=== PATIENT | male | born 1935 | race Caucasian/White ===

== ENCOUNTER 2019-08-05 10:00 | Day surgery (SDC) | payer MEDICARE, OTHER ==
[2019-08-02 08:37] LABS: Basophils # (auto) 0.1 uL; Eosinophils # (auto) 0.3 uL; Eosinophils % (auto) 4.3 % (0.0-7.0); Hematocrit 42.3 % (41.0-53.0); Hemoglobin 14.4 g/dL (13.5-17.5); Lymphocytes # (auto) 2.4 uL; Lymphocytes % (auto) 35.6 % (10.0-50.0); Mean Corpuscular Volume 88.1 fL (80.0-100.0); Monocytes # (auto) 0.5 uL; Monocytes % (auto) 7.3 % (0.0-12.0); Neutrophils # (auto) 3.5 uL; Neutrophils % (auto) 51.8 % (37.0-80.0); Platelet Count (auto) 230 10^3/uL (140-450); White Blood Cell 6.7 10^3/uL (4.4-10.8)
[2019-08-02 15:53] LABS: INR 0.95 (0.9-1.15); Partial Thromboplastin Time 24.5 sec (23.64-32.05)
[~2019-08-05] VITALS: Ht 180.3 cm; Wt 96.2 kg
[~2019-08-05 10:00] MED LIST: ASPI81CH43 GT; ATOR10TA OR; DOXA2TAB PO; ENAL10TA2 OR; GABA100C9 OR; METF-370 OR
[2019-08-05] MEDS: MIDAZOLAM HCL 5 MG/ML-1ML VIAL ONE ×2 (11:34→11:37)
[2019-08-05] MEDS: fentaNYL CITRATE 100 MCG/2 ML VL ONE ×2 (11:34→11:37)
[2019-08-05] MEDS ORDERED: LIDOCAINE VISCOUS 2% 15ML UD ONE (11:36)
[2019-08-05] MEDS ORDERED: SODIUM CHLORIDE LOCK 10 ML ONE (11:36)
[2019-08-05] MEDS ORDERED: diphenhdrAMINE HCL 50 MG/1 ML VL ONE (11:37)
[2019-08-05 12:32] VITALS: BP 112/66
== END 2019-08-05 12:34 | disposition home or self-care (01) ==
LOC: GI 10:00
PROVIDERS: ATTEND Internal Medicine Gastroenterology
DX: K29.50 Unspecified chronic gastritis without bleeding (principal); K29.80 Duodenitis without bleeding; I10 Essential (primary) hypertension; E11.40 Type 2 diabetes mellitus with diabetic neuropathy, unspecified; E78.00 Pure hypercholesterolemia, unspecified; N40.0 Benign prostatic hyperplasia without lower urinary tract symptoms; R25.1 Tremor, unspecified; Z86.010 Personal history of colon polyps; Z79.84 Long term (current) use of oral hypoglycemic drugs; Z79.899 Other long term (current) drug therapy
CPT/HCPCS: 36415; 43239; 43450; 82962; 85025; 85610; 85730; 88305; 88313; 88342; J2250; J3010; J7030

== ENCOUNTER 2020-06-22 11:58 | Day surgery (SDC) | payer MEDICARE, OTHER ==
[2020-06-19 10:12] LABS: Basophils # (auto) 0.1 10 ^3/uL (0-0.2); Eosinophils # (auto) 0.3 10 ^3/uL (0-0.8); Eosinophils % (auto) 4.9 % (0.0-7.0); Hematocrit 33.6 % (41.0-53.0); Hemoglobin 11.4 g/dL (13.5-17.5); Lymphocytes % (auto) 32.8 % (10.0-50.0); Mean Corpuscular Hemoglobin 30.2 pg (28.0-32.0); Mean Corpuscular Hgb Conc. 33.9 g/dL (32.0-36.0); Mean Corpuscular Volume 89.2 fL (80.0-100.0); Monocytes # (auto) 0.5 10 ^3/uL (0-1.3); Monocytes % (auto) 7.8 % (0.0-12.0); Neutrophils # (auto) 3.2 10 ^3/uL (1.6-8.6); Neutrophils % (auto) 53.5 % (37.0-80.0); Nucleated Red Blood Cells % 0.1 %; Platelet Count (auto) 177 10^3/uL (140-450); Red Blood Cells 3.77 10^6/uL (4.5-5.90); Red Cell Distribution Width 13.6 % (11.8-14.3)
[2020-06-19 10:40] LABS: INR 1.03 (0.9-1.15); Partial Thromboplastin Time 23.5 sec (23.0-31.2)
[~2020-06-22] VITALS: Ht 180.3 cm; Wt 104.3 kg
[~2020-06-22 11:58] MED LIST changes: -ASPI81CH43 GT; +ASPI81CH43 PO; -ATOR10TA OR; +ATOR10TA PO; -ENAL10TA2 OR; -GABA100C9 OR; -METF-370 OR; +PANT40TA2 PO; +PIO30T PO; +PRAM0.12 PO; +SODIUM CHLORIDE LOCK 10 ML ONE; +diphenhdrAMINE HCL 50 MG/1 ML VL ONE
[2020-06-22] MEDS: fentaNYL CITRATE 100 MCG/2 ML VL ONE ×2 (13:42→13:44)
[2020-06-22] MEDS: MIDAZOLAM HCL 5 MG/ML-1ML VIAL ONE ×3 (13:42→14:00)
[2020-06-22 14:30] VITALS: BP 134/63
== END 2020-06-22 14:40 | disposition home or self-care (01) ==
LOC: GI 11:58
PROVIDERS: ATTEND Internal Medicine Gastroenterology
DX: Z12.11 Encounter for screening for malignant neoplasm of colon (principal); D12.2 Benign neoplasm of ascending colon; D12.3 Benign neoplasm of transverse colon; K62.1 Rectal polyp; K64.8 Other hemorrhoids; E11.9 Type 2 diabetes mellitus without complications; E66.9 Obesity, unspecified; Z68.32 Body mass index [BMI] 32.0-32.9, adult; Z98.890 Other specified postprocedural states; Z79.899 Other long term (current) drug therapy; Z20.828 Contact with and (suspected) exposure to other viral communicable diseases; Z86.010 Personal history of colon polyps
CPT/HCPCS: 36415; 45380; 45385; 82962; 85025; 85610; 85730; 88305; J1200; J2250; J3010; J7030; U0003; G0500

== ENCOUNTER → 2022-02-26 | Outpatient (CLI) | payer MEDICARE, OTHER ==
[~2022-02-26] MED LIST changes: +BUPIVACAINE HCL 0.25% P/F 10 ML VIAL ONE; +IOHEXOL 300 MG/ML 100ML BOTTLE IJ ONE; +LIDOCAINE 2%HCL (LOCAL ANESTH.) INJ 10ml MDV ONE; -SODIUM CHLORIDE LOCK 10 ML ONE; +TRIAMCINOLONE 40MG/ML 1ML VIAL ONE; -diphenhdrAMINE HCL 50 MG/1 ML VL ONE
== END | disposition home or self-care (01) ==
LOC: XYW 13:33
PROVIDERS: ATTEND Orthopaedic Surgery Adult Reconstructive Orthopaedic Surgery
DX: M70.61 Trochanteric bursitis, right hip (principal); M16.0 Bilateral primary osteoarthritis of hip
CPT/HCPCS: 73501; J2001; J3301; J3490; Q9967

== ENCOUNTER → 2022-05-13 | Outpatient (CLI) | payer MEDICARE, OTHER ==
[~2022-05-13] MED LIST changes: -BUPIVACAINE HCL 0.25% P/F 10 ML VIAL ONE; -IOHEXOL 300 MG/ML 100ML BOTTLE IJ ONE; -LIDOCAINE 2%HCL (LOCAL ANESTH.) INJ 10ml MDV ONE; -TRIAMCINOLONE 40MG/ML 1ML VIAL ONE
[2022-05-13 11:58] LABS: Basophils # (auto) 0.1 10 ^3/uL (0-0.2); Basophils % (auto) 0.7 % (0.0-2.0); Eosinophils # (auto) 0.2 10 ^3/uL (0-0.8); Eosinophils % (auto) 2.1 % (0.0-7.0); Hematocrit 42.5 % (41.0-53.0); Hemoglobin 13.8 g/dL (13.5-17.5); Lymphocytes # (auto) 1.8 10 ^3/uL (0.4-5.4); Lymphocytes % (auto) 21.7 % (10.0-50.0); Mean Corpuscular Hemoglobin 28.7 pg (28.0-32.0); Mean Corpuscular Hgb Conc. 32.4 g/dL (32.0-36.0); Mean Corpuscular Volume 88.5 fL (80.0-100.0); Monocytes # (auto) 0.6 10 ^3/uL (0-1.3); Monocytes % (auto) 7.1 % (0.0-12.0); Neutrophils # (auto) 5.6 10 ^3/uL (1.6-8.6); Neutrophils % (auto) 68.4 % (37.0-80.0); Nucleated Red Blood Cells % 0.1 %; Red Cell Distribution Width 14.9 % (11.8-14.3); White Blood Cell 8.2 10^3/uL (4.4-10.8)
[2022-05-13 12:06] LABS: Urine Bacteria NONE SEEN /hpf (None Seen); Urine Blood Negative /uL (Negative); Urine Specific Gravity 1.026 (1.001-1.035); Urine WBC 2 /hpf (0 - 3)
[2022-05-13 12:34] LABS: % Iron Saturation 29.3 % (20-55)
[2022-05-13 12:35] LABS: Potassium 4.6 mmol/L (3.5-5.1)
[2022-05-13 12:41] LABS: Free T4 (Free Thyroxine) 1.09 ng/dL (0.89-1.76)
[2022-05-13 12:42] LABS: Folate (Folic Acid) 21.72 ng/mL (5.38-24); Protein, Urine 24.8 mg/dL (0.0-11.9)
[2022-05-13 12:45] LABS: Albumin 3.2 g/dL (3.4-5.0); BUN/Creatinine Ratio 14.4; Bilirubin, Total 0.7 mg/dL (0.2-1.0); Calcium 9.4 mg/dL (8.5-10.1); Total Protein 6.8 g/dL (6.4-8.2)
[2022-05-13 12:46] LABS: Thyroid Stimulating Hormone 1.62 uIU/mL (0.358-3.74)
[2022-05-13 12:53] LABS: Micro Albumin 36.4 mg/L (0-30.0)
[2022-05-13 13:10] LABS: Prostate Specific Antigen 8.87 ng/mL (0.0-4.0)
== END | disposition home or self-care (01) ==
LOC: LAB 11:22
PROVIDERS: ATTEND Internal Medicine
DX: I10 Essential (primary) hypertension (principal); E11.9 Type 2 diabetes mellitus without complications; N40.0 Benign prostatic hyperplasia without lower urinary tract symptoms
CPT/HCPCS: 36415; 80053; 80061; 81001; 82043; 82570; 82607; 82746; 83036; 83540; 83550; 83615; 84153; 84154; 84156; 84439; 84443; 85025; 85652

== ENCOUNTER → 2022-08-01 | Outpatient (CLI) | payer MEDICARE, OTHER ==
[2022-08-01 08:59] LABS: Urine Bacteria NONE SEEN /hpf (None Seen); Urine Blood Negative /uL (Negative); Urine Specific Gravity 1.026 (1.001-1.035); Urine WBC 4 /hpf (0 - 3)
== END | disposition home or self-care (01) ==
LOC: LAB 07:08
PROVIDERS: ATTEND Urology
DX: N39.0 Urinary tract infection, site not specified (principal)
CPT/HCPCS: 81001; 87086

== ENCOUNTER → 2022-08-07 | Outpatient (CLI) | payer MEDICARE, OTHER ==
[2022-08-07 12:56] LABS: Urine Bacteria NONE SEEN /hpf (None Seen); Urine Blood Negative /uL (Negative); Urine Specific Gravity 1.029 (1.001-1.035); Urine WBC 4 /hpf (0 - 3)
== END | disposition home or self-care (01) ==
LOC: LAB 11:32
PROVIDERS: ATTEND Urology
DX: N39.0 Urinary tract infection, site not specified (principal)
CPT/HCPCS: 81001; 87086

== ENCOUNTER 2022-10-24 17:09 | Emergency (ER) | payer MEDICARE, OTHER ==
[~2022-10-24] VITALS: Ht 177.8 cm; Wt 95.7 kg
[2022-10-24 23:48] VITALS: BP 147/80
== END 2022-10-25 00:07 | disposition home or self-care (01) ==
LOC: ER 17:14
DX: S62.502A Fracture of unspecified phalanx of left thumb, initial encounter for closed fracture (principal); S00.81XA Abrasion of other part of head, initial encounter; M54.2 Cervicalgia; I10 Essential (primary) hypertension; W01.0XXA Fall on same level from slipping, tripping and stumbling without subsequent striking against object, initial encounter; Y93.89 Activity, other specified; Y92.89 Other specified places as the place of occurrence of the external cause; Y99.8 Other external cause status
CPT/HCPCS: 29125; 70450; 72125; 73110; 73130

== ENCOUNTER 2022-11-13 06:42 | Day surgery (SDC) | payer MEDICARE, OTHER ==
[2022-11-10 13:08] LABS: Basophils # (auto) 0 10 ^3/uL (0-0.2); Basophils % (auto) 0.7 % (0.0-2.0); Eosinophils # (auto) 0.3 10 ^3/uL (0-0.8); Eosinophils % (auto) 4.6 % (0.0-7.0); Hematocrit 40.5 % (41.0-53.0); Hemoglobin 13.6 g/dL (13.5-17.5); Lymphocytes % (auto) 30.2 % (10.0-50.0); Mean Corpuscular Hemoglobin 29.4 pg (28.0-32.0); Mean Corpuscular Hgb Conc. 33.6 g/dL (32.0-36.0); Mean Corpuscular Volume 87.5 fL (80.0-100.0); Monocytes # (auto) 0.5 10 ^3/uL (0-1.3); Monocytes % (auto) 7.8 % (0.0-12.0); Neutrophils # (auto) 3.8 10 ^3/uL (1.6-8.6); Neutrophils % (auto) 56.7 % (37.0-80.0); Nucleated Red Blood Cells % 0.1 %; Red Blood Cells 4.63 10^6/uL (4.5-5.90); Red Cell Distribution Width 14.5 % (11.8-14.3); White Blood Cell 6.8 10^3/uL (4.4-10.8)
[2022-11-10 13:12] LABS: Urine Bacteria NONE SEEN /hpf (None Seen); Urine Blood Negative /uL (Negative); Urine Hyaline Cast FEW /lpf (0 - 2); Urine Mucus FEW (None Seen); Urine Specific Gravity 1.026 (1.001-1.035); Urine WBC 6 /hpf (0 - 3)
[2022-11-10 13:25] LABS: INR 0.98 (0.9-1.15); Partial Thromboplastin Time 26.2 sec (24.6-33.4)
[2022-11-10 13:35] LABS: Albumin 3.2 g/dL (3.4-5.0); BUN/Creatinine Ratio 14.8; Calcium 9.2 mg/dL (8.5-10.1); Potassium 3.9 mmol/L (3.5-5.1)
[2022-11-10 13:38] LABS: Bilirubin, Total 0.5 mg/dL (0.2-1.0); Total Protein 6.7 g/dL (6.4-8.2)
[~2022-11-13] VITALS: Ht 180.3 cm; Wt 91.6 kg
[~2022-11-13 06:42] MED LIST changes: +AMLO-489 PO; +FLUT110A IN; +GABA300C10 PO; +GLIM-5 PO; +HYDR12.56 PO; +METF-370 PO; +METO-289 PO; +TAMS0.4C36 PO
[2022-11-13] MEDS ORDERED: PROPOFOL 10 MG/ML 20 ML IV ONE (07:34)
[2022-11-13] MEDS ORDERED: DexAMETHasone SOD PHOS 10MG/1ML VIAL INJ ONE (07:35)
[2022-11-13] MEDS ORDERED: ONDANSETRON HCL 4 MG/2 ML VIAL ONE (07:35)
[2022-11-13] MEDS ORDERED: GLYCOPYRROLATE 0.2 MG/ML 1ML VIAL ONE (07:35)
[2022-11-13 08:28] VITALS: BP 102/58
== END 2022-11-13 08:40 | disposition home or self-care (01) ==
LOC: SUR 06:42
PROVIDERS: ATTEND Urology
DX: R97.20 Elevated prostate specific antigen [PSA] (principal); I10 Essential (primary) hypertension; E78.5 Hyperlipidemia, unspecified; E11.9 Type 2 diabetes mellitus without complications; Z79.82 Long term (current) use of aspirin; Z98.49 Cataract extraction status, unspecified eye; Z87.891 Personal history of nicotine dependence; Z98.890 Other specified postprocedural states; Z79.899 Other long term (current) drug therapy; Z87.898 Personal history of other specified conditions; Z79.84 Long term (current) use of oral hypoglycemic drugs; Z20.822 Contact with and (suspected) exposure to COVID-19
CPT/HCPCS: 36415; 55700; 80053; 81001; 82962; 85025; 85610; 85730; 87086; 88305; 88342; J1100; J2405; J2704; U0003

== ENCOUNTER → 2022-12-09 | Outpatient (CLI) | payer MEDICARE, OTHER | END | disposition home or self-care (01) | LOC: XYW 08:34 | PROVIDERS: ATTEND Urology | DX: C61 Malignant neoplasm of prostate (principal) | CPT/HCPCS: 78306; A9503 ==

== ENCOUNTER → 2022-12-16 | Outpatient (CLI) | payer MEDICARE, OTHER ==
[~2022-12-16] VITALS: Ht 180.3 cm; Wt 91.2 kg
[~2022-12-16] MED LIST changes: +ADENOSINE 77 MG in GIVE UN-DILUTED 0 ML IV STA
[2022-12-16 09:36] VITALS: BP 115/59
== END | disposition home or self-care (01) ==
LOC: XYW 08:13
PROVIDERS: ATTEND Internal Medicine
DX: Z01.810 Encounter for preprocedural cardiovascular examination (principal); I10 Essential (primary) hypertension; E11.65 Type 2 diabetes mellitus with hyperglycemia; N40.0 Benign prostatic hyperplasia without lower urinary tract symptoms; R39.198 Other difficulties with micturition
CPT/HCPCS: 78452; 93017; A9500; J0153

== ENCOUNTER → 2022-12-22 | Outpatient (CLI) | payer MEDICARE, OTHER ==
[~2022-12-22] MED LIST changes: -ADENOSINE 77 MG in GIVE UN-DILUTED 0 ML IV STA
== END | disposition home or self-care (01) ==
LOC: XYW 09:05
PROVIDERS: ATTEND Internal Medicine
DX: I08.8 Other rheumatic multiple valve diseases (principal); I10 Essential (primary) hypertension
CPT/HCPCS: 93306

== ENCOUNTER → 2022-12-29 | Outpatient (CLI) | payer MEDICARE, OTHER | END | disposition home or self-care (01) | LOC: LAB 15:50 | PROVIDERS: ATTEND Urology | DX: C61 Malignant neoplasm of prostate (principal) | CPT/HCPCS: 84153 ==

== ENCOUNTER → 2023-01-08 | Outpatient (CLI) | payer MEDICARE, OTHER ==
[2023-01-08 14:46] LABS: Urine Bacteria FEW /hpf (None Seen); Urine Blood Negative /uL (Negative); Urine Specific Gravity 1.017 (1.001-1.035); Urine WBC 1 /hpf (0 - 3)
== END | disposition home or self-care (01) ==
LOC: LAB 14:14
PROVIDERS: ATTEND Urology
DX: N39.0 Urinary tract infection, site not specified (principal)
CPT/HCPCS: 81001; 87086

== ENCOUNTER → 2023-03-30 | Outpatient (CLI) | payer MEDICARE, OTHER ==
[~2023-03-30] MED LIST changes: -AMLO-489 PO; +AMLO1TAB22 PO; -DOXA2TAB PO; +DOXA2TAB84 PO; +GABA-1250 PO; -GABA300C10 PO; +GLIM-38 PO; -GLIM-5 PO; -HYDR12.56 PO; +HYDR12.59 PO
[2023-03-30 10:40] LABS: Basophils # (auto) 0 10 ^3/uL (0-0.2); Basophils % (auto) 0.6 % (0.0-2.0); Eosinophils # (auto) 0.3 10 ^3/uL (0-0.8); Eosinophils % (auto) 5.6 % (0.0-7.0); Hemoglobin 13.1 g/dL (13.5-17.5); Lymphocytes # (auto) 1.5 10 ^3/uL (0.4-5.4); Mean Corpuscular Hemoglobin 29.5 pg (28.0-32.0); Mean Corpuscular Hgb Conc. 33.7 g/dL (32.0-36.0); Mean Corpuscular Volume 87.6 fL (80.0-100.0); Monocytes # (auto) 0.5 10 ^3/uL (0-1.3); Monocytes % (auto) 7.9 % (0.0-12.0); Neutrophils # (auto) 3.9 10 ^3/uL (1.6-8.6); Neutrophils % (auto) 61.9 % (37.0-80.0); Nucleated Red Blood Cells % 0.1 %; Red Blood Cells 4.45 10^6/uL (4.5-5.90); Red Cell Distribution Width 13.6 % (11.8-14.3); White Blood Cell 6.2 10^3/uL (4.4-10.8)
[2023-03-30 10:53] LABS: Urine Bacteria FEW /hpf (None Seen); Urine Blood TRACE /uL (Negative); Urine Specific Gravity 1.019 (1.001-1.035); Urine WBC 559 /hpf (0 - 3); Urine WBC Clumps PRESENT /hpf (None Seen)
[2023-03-30 11:25] LABS: Potassium 4.2 mmol/L (3.5-5.1)
[2023-03-30 11:39] LABS: Albumin 3.8 g/dL (3.4-5.0); BUN/Creatinine Ratio 15.4 (10.0-20.0); Bilirubin, Total 0.5 mg/dL (0.2-1.0); Calcium 9.7 mg/dL (8.5-10.1); Total Protein 7.1 g/dL (6.4-8.2)
[2023-03-30 18:06] LABS: Free T4 (Free Thyroxine) 1.02 ng/dL (0.89-1.76)
== END | disposition home or self-care (01) ==
LOC: LAB 10:19
PROVIDERS: ATTEND Internal Medicine
DX: C61 Malignant neoplasm of prostate (principal); E11.9 Type 2 diabetes mellitus without complications; I10 Essential (primary) hypertension
CPT/HCPCS: 36415; 80053; 80061; 81001; 82043; 82607; 83036; 84439; 84443; 85025; 85652

== ENCOUNTER → 2023-04-22 | Outpatient (CLI) | payer MEDICARE, OTHER ==
[2023-04-22 13:29] LABS: Urine Bacteria NONE SEEN /hpf (None Seen); Urine Blood Negative /uL (Negative); Urine Specific Gravity 1.018 (1.001-1.035); Urine WBC 7 /hpf (0 - 3)
== END | disposition home or self-care (01) ==
LOC: LAB 13:10
PROVIDERS: ATTEND Internal Medicine Medical Oncology
DX: C61 Malignant neoplasm of prostate (principal); N39.0 Urinary tract infection, site not specified
CPT/HCPCS: 81001

== ENCOUNTER → 2023-05-15 | Outpatient (CLI) | payer MEDICARE, OTHER | END | disposition home or self-care (01) | LOC: LAB 11:28 | PROVIDERS: ATTEND Urology | DX: C61 Malignant neoplasm of prostate (principal) | CPT/HCPCS: 84154 ==

== ENCOUNTER 2023-08-18 06:17 | Inpatient (IN) | payer MEDICARE, OTHER ==
[2023-08-13 15:25] LABS: Basophils # (auto) 0.1 10 ^3/uL (0-0.2); Basophils % (auto) 0.9 % (0.0-2.0); Eosinophils # (auto) 0.3 10 ^3/uL (0-0.8); Eosinophils % (auto) 4.8 % (0.0-7.0); Hematocrit 41.7 % (41.0-53.0); Hemoglobin 14.1 g/dL (13.5-17.5); Lymphocytes # (auto) 1.3 10 ^3/uL (0.4-5.4); Lymphocytes % (auto) 21.7 % (10.0-50.0); Mean Corpuscular Hemoglobin 30.3 pg (28.0-32.0); Mean Corpuscular Hgb Conc. 33.9 g/dL (32.0-36.0); Mean Corpuscular Volume 89.5 fL (80.0-100.0); Monocytes # (auto) 0.4 10 ^3/uL (0-1.3); Monocytes % (auto) 6.5 % (0.0-12.0); Neutrophils # (auto) 3.9 10 ^3/uL (1.6-8.6); Neutrophils % (auto) 66.1 % (37.0-80.0); Nucleated Red Blood Cells % 0.2 %; Red Blood Cells 4.65 10^6/uL (4.5-5.90); Red Cell Distribution Width 13.8 % (11.8-14.3); White Blood Cell 5.8 10^3/uL (4.4-10.8)
[2023-08-13 15:42] LABS: Urine Bacteria NONE SEEN /hpf (None Seen); Urine Blood Negative /uL (Negative); Urine Clarity Clear (Clear); Urine Color Yellow (Yellow); Urine Protein, UAD TRACE (Negative); Urine Specific Gravity 1.037 (1.001-1.035); Urine Urobilinogen Normal (Negative); Urine WBC 4 /hpf (0 - 3); Urine pH 5.5 (5.0-8.0)
[2023-08-13 15:46] LABS: Alanine Aminotransferase 32 U/L (7-40); Alkaline Phosphatase 82 U/L (46-116); Anion Gap 6 (5-15); Aspartate Aminotransferase 21 U/L (13-40); BUN/Creatinine Ratio 10.1 (10.0-20.0); Blood Urea Nitrogen 14 mg/dL (9-23); Calcium 9.4 mg/dL (8.7-10.4); Carbon Dioxide 28 mmol/L (20-30); Chloride 105 mmol/L (98-107); Glucose 189 mg/dL (74-106); Potassium 4.1 mmol/L (3.5-5.1); Sodium 139 mmol/L (136-145)
[2023-08-13 15:47] LABS: Albumin 4.6 g/dL (3.2-4.8); Bilirubin, Total 0.7 mg/dL (0.2-1.0); Total Protein 6.9 g/dL (5.7-8.2)
[2023-08-13 16:16] LABS: INR 1.06 (0.9-1.15); Partial Thromboplastin Time 25.5 SEC (24.5-34.5); Prothrombin Time 11.1 sec (9.3-11.8)
[~2023-08-18] VITALS: Ht 180.3 cm; Wt 99.1 kg
[~2023-08-18 06:17] MED LIST changes: +ACET500T58 PO; +BICA50TA13 PO; -DOXA2TAB84 PO; +EMPA1TAB3 PO; -HYDR12.59 PO; +LIDO5DIS21 TOP; -METF-370 PO; -PRAM0.12 PO
[2023-08-18] MEDS ORDERED: ceFAZolin 1GM/50ML 0 ML IV ONE (06:23)
[2023-08-18] MEDS ORDERED: TRANEXAMIC ACID 20 ML ONE (06:24)
[2023-08-18] MEDS ORDERED: LIDOCAINE W/ EPINEPHRINE 1% 20ML VIAL ONE (06:25)
[2023-08-18] MEDS ORDERED: ceFAZolin 2 GM/D5W100ml 100 ML IV ONE (06:27)
[2023-08-18] MEDS ORDERED: LIDOCAINE 2% JELLY 11ml (GLYDO) ONE (06:41)
[2023-08-18] MEDS ORDERED: MAGNESIUM SULFATE 1GM/100ML 200 ML IV ONE (06:42)
[2023-08-18] MEDS ORDERED: LIDOCAINE 4MG/ML IV SOLN 500 ML IV ONE (06:42)
[2023-08-18] MEDS ORDERED: GABAPENTIN 300 MG CAP PO ONE (06:45)
[2023-08-18] MEDS ORDERED: oxyCODONE ER 20 MG TAB PO ONE (06:45)
[2023-08-18] MEDS ORDERED: ACETAMINOPHEN IV 1000 MG/100ML (10MG/ML) IV ONE (06:45)
[2023-08-18] MEDS ORDERED: PROPOFOL 10 MG/ML 20 ML IV ONE ×2 (06:56→08:44)
[2023-08-18] MEDS ORDERED: GABAPENTIN 300 MG CAP ONE (06:59)
[2023-08-18] MEDS ORDERED: ACETAMINOPHEN IV 100 ML IV ONE (06:59)
[2023-08-18] MEDS ORDERED: ONDANSETRON HCL 4 MG/2 ML VIAL ONE (07:02)
[2023-08-18] MEDS ORDERED: DexAMETHasone SOD PHOS 10MG/1ML VIAL INJ ONE (07:03)
[2023-08-18] MEDS ORDERED: ROCURONIUM 10MG/ML 10ML VIAL IV ONE (07:03)
[2023-08-18] MEDS ORDERED: GLYCOPYRROLATE 0.2 MG/ML 1ML VIAL ONE ×2 (07:03→09:04)
[2023-08-18] MEDS ORDERED: LIDOCAINE 1% HCL (LOCAL ANESTH.) INJ 20ML MDV ONE (07:07)
[2023-08-18] MEDS ORDERED: SODIUM CHLORIDE LOCK 10 ML ONE ×2 (07:50→08:16)
[2023-08-18] MEDS ORDERED: fentaNYL CITRATE 100 MCG/2 ML VL ONE (08:13)
[2023-08-18] MEDS ORDERED: PHENYLEPHRINE HCL 10 MG/ML VL ONE (08:16)
[2023-08-18] MEDS ORDERED: ONDANSETRON HCL 4 MG/2 ML VIAL IV PRN ×2 (11:00→11:30)
[2023-08-18] MEDS ORDERED: NITROGLYCERIN 0.4 MG SL TAB SL PRN (11:00)
[2023-08-18] MEDS ORDERED: MORPHINE SULFATE INJ 2 MG/ml SYRG IV PRN ×2 (11:00)
[2023-08-18 11:13] VITALS: RESP 21; O2SAT 98
[2023-08-18] MEDS ORDERED: HYDROmorphone HCL 2 MG/ML VL/or syr IV PRN (11:30)
[2023-08-18] MEDS ORDERED: ePHEDrine SULFATE 50 MG/ML AMP IV PRN (11:30)
[2023-08-18] MEDS ORDERED: oxyCODONE HCL 5MG TAB PO PRN (11:30)
[2023-08-18] MEDS ORDERED: hydrALAZINE HCL 20 MG/ML VL IV PRN (11:30)
[2023-08-18] MEDS ORDERED: NALOXONE HCL 0.4 MG/ML VIAL IV PRN (11:30)
[2023-08-18] MEDS ORDERED: FLUMAZENIL 0.1 MG/ML INJ 10ML MDV IV PRN (11:30)
[2023-08-18] MEDS ORDERED: LABETALOL HCL 5 MG/ML 4ML SYRINGE IV PRN (11:30)
[2023-08-18] MEDS ORDERED: fentaNYL CITRATE 100 MCG/2 ML VL IV PRN (11:30)
[2023-08-18] MEDS: CYCLOBENZAPRINE HCL 10 MG TAB PO SCH ×2 (15:04→21:30)
[2023-08-18] MEDS ORDERED: DEXTROSE (50%) 50ML SYRG IV PRN (16:15)
[2023-08-18] MEDS: ceFAZolin 1GM/50ML 50 ML IV SCH ×2 (16:25→18:33)
[2023-08-18 18:27] VITALS: PULSE 60; RESP 18; O2SAT 98
[2023-08-18] MEDS: TAMSULOSIN HYDROCHLORIDE 0.4 MG CAP PO SCH (18:29)
[2023-08-18] MEDS: ACCU-CHEK COMFORT CURVE STRIP VI SCH ×2 (18:39→23:36)
[2023-08-18] MEDS: InsuLIN REG 1unit/0.01ml Soln (100units/ml) SC SCH ×2 (18:40→23:41)
[2023-08-18 20:00] VITALS: PULSE 71
[2023-08-18] MEDS: D5W/SOD CHLO 0.9% 1,000 ML IV SCH (21:00)
[2023-08-18] MEDS: GABAPENTIN 300 MG CAP PO SCH (21:30)
[2023-08-18] MEDS: DOCUSATE SOD 100 MG CAP PO SCH (21:30)
[2023-08-18] MEDS: HYDROcodone-ACET 10/325MG TAB PO PRN (21:31)
[2023-08-18] MEDS ORDERED: TRAM50TA2 PO (21:48)
[2023-08-18] MEDS ORDERED: CHOL20007 PO (21:48)
[2023-08-18] MEDS ORDERED: LISI2.5T47 PO (21:48)
[2023-08-18 22:00] VITALS: BP 110/59; PULSE 54; RESP 19; TEMP 98; O2SAT 95
[2023-08-19 05:00] VITALS: BP 115/61; PULSE 62; RESP 19; TEMP 97.7; O2SAT 91
[2023-08-19] MEDS: CYCLOBENZAPRINE HCL 10 MG TAB PO SCH ×3 (05:49→21:37)
[2023-08-19] MEDS: GABAPENTIN 300 MG CAP PO SCH ×3 (05:49→21:37)
[2023-08-19] MEDS: ACCU-CHEK COMFORT CURVE STRIP VI SCH ×3 (05:54→17:49)
[2023-08-19 05:58] LABS: Basophils # (auto) 0 10 ^3/uL (0-0.2); Basophils % (auto) 0.1 % (0.0-2.0); Eosinophils # (auto) 0 10 ^3/uL (0-0.8); Eosinophils % (auto) 0.1 % (0.0-7.0); Hematocrit 38.7 % (41.0-53.0); Hemoglobin 12.8 g/dL (13.5-17.5); Lymphocytes # (auto) 0.9 10 ^3/uL (0.4-5.4); Lymphocytes % (auto) 7.3 % (10.0-50.0); Mean Corpuscular Hemoglobin 30.1 pg (28.0-32.0); Mean Corpuscular Hgb Conc. 33.2 g/dL (32.0-36.0); Mean Corpuscular Volume 90.8 fL (80.0-100.0); Monocytes # (auto) 0.8 10 ^3/uL (0-1.3); Monocytes % (auto) 6.7 % (0.0-12.0); Neutrophils # (auto) 10.2 10 ^3/uL (1.6-8.6); Neutrophils % (auto) 85.8 % (37.0-80.0); Red Blood Cells 4.27 10^6/uL (4.5-5.90); Red Cell Distribution Width 13.7 % (11.8-14.3); White Blood Cell 11.9 10^3/uL (4.4-10.8)
[2023-08-19] MEDS: InsuLIN REG 1unit/0.01ml Soln (100units/ml) SC SCH ×3 (06:09→17:54)
[2023-08-19 06:15] LABS: Alanine Aminotransferase 26 U/L (7-40); Albumin 3.8 g/dL (3.2-4.8); Alkaline Phosphatase 62 U/L (46-116); Anion Gap 7 (5-15); Aspartate Aminotransferase 33 U/L (13-40); BUN/Creatinine Ratio 11.8 (10.0-20.0); Blood Urea Nitrogen 15 mg/dL (9-23); Carbon Dioxide 23 mmol/L (20-30); Chloride 107 mmol/L (98-107); Glucose 150 mg/dL (74-106); Potassium 4.7 mmol/L (3.5-5.1); Sodium 137 mmol/L (136-145)
[2023-08-19 06:16] LABS: Bilirubin, Total 0.5 mg/dL (0.2-1.0); Total Protein 5.8 g/dL (5.7-8.2)
[2023-08-19] MEDS: D5W/SOD CHLO 0.9% 1,000 ML IV SCH (07:00)
[2023-08-19 08:00] VITALS: PULSE 55; PULSE 74
[2023-08-19 08:26] VITALS: BP 122/51; PULSE 60; RESP 20; TEMP 98.7; O2SAT 96
[2023-08-19] MEDS: DOCUSATE SOD 100 MG CAP PO SCH ×2 (09:23→21:37)
[2023-08-19 13:00] VITALS: BP 126/56; PULSE 60; RESP 20; TEMP 99; O2SAT 93
[2023-08-19] MEDS: HYDROcodone-ACET 10/325MG TAB PO PRN ×2 (13:55→21:37)
[2023-08-19 17:10] VITALS: BP 127/54; PULSE 74; RESP 20; TEMP 98.8; O2SAT 91
[2023-08-19] MEDS: TAMSULOSIN HYDROCHLORIDE 0.4 MG CAP PO SCH (17:49)
[2023-08-19 22:00] VITALS: BP 124/55; PULSE 80; RESP 20; TEMP 97.7; O2SAT 95
[2023-08-20] MEDS: InsuLIN REG 1unit/0.01ml Soln (100units/ml) SC SCH ×4 (00:53→16:39)
[2023-08-20 05:00] VITALS: BP 115/52; PULSE 83; RESP 20; TEMP 97.6; O2SAT 94
[2023-08-20] MEDS: GABAPENTIN 300 MG CAP PO SCH ×3 (05:31→21:56)
[2023-08-20] MEDS: CYCLOBENZAPRINE HCL 10 MG TAB PO SCH ×3 (05:31→21:56)
[2023-08-20] MEDS: ACCU-CHEK COMFORT CURVE STRIP VI SCH ×4 (05:31→16:29)
[2023-08-20 06:15] LABS: Anion Gap 8 (5-15); Carbon Dioxide 24 mmol/L (20-30); Chloride 106 mmol/L (98-107); Potassium 3.9 mmol/L (3.5-5.1); Sodium 138 mmol/L (136-145)
[2023-08-20 06:16] LABS: Calcium 8.8 mg/dL (8.7-10.4)
[2023-08-20 06:21] LABS: BUN/Creatinine Ratio 12.5 (10.0-20.0); Blood Urea Nitrogen 15 mg/dL (9-23); Glucose 128 mg/dL (74-106)
[2023-08-20 07:45] LABS: Basophils # (auto) 0 10 ^3/uL (0-0.2); Basophils % (auto) 0.3 % (0.0-2.0); Eosinophils # (auto) 0.1 10 ^3/uL (0-0.8); Eosinophils % (auto) 0.9 % (0.0-7.0); Hematocrit 37.5 % (41.0-53.0); Hemoglobin 12.5 g/dL (13.5-17.5); Lymphocytes % (auto) 12.8 % (10.0-50.0); Mean Corpuscular Hemoglobin 30.5 pg (28.0-32.0); Mean Corpuscular Hgb Conc. 33.3 g/dL (32.0-36.0); Mean Corpuscular Volume 91.6 fL (80.0-100.0); Monocytes # (auto) 0.8 10 ^3/uL (0-1.3); Monocytes % (auto) 9.8 % (0.0-12.0); Neutrophils # (auto) 5.9 10 ^3/uL (1.6-8.6); Neutrophils % (auto) 76.2 % (37.0-80.0); Red Blood Cells 4.09 10^6/uL (4.5-5.90); Red Cell Distribution Width 13.7 % (11.8-14.3); White Blood Cell 7.8 10^3/uL (4.4-10.8)
[2023-08-20 08:00] VITALS: PULSE 78; RESP 20
[2023-08-20] MEDS: DOCUSATE SOD 100 MG CAP PO SCH ×2 (08:50→21:56)
[2023-08-20 09:32] VITALS: BP 139/61; PULSE 78; RESP 20; TEMP 97.8; O2SAT 91
[2023-08-20 12:40] VITALS: BP 145/67; PULSE 81; RESP 20; TEMP 98.9; O2SAT 90
[2023-08-20] MEDS: TAMSULOSIN HYDROCHLORIDE 0.4 MG CAP PO SCH (16:28)
[2023-08-20] MEDS: HYDROcodone-ACET 10/325MG TAB PO PRN (16:29)
[2023-08-20 16:42] VITALS: BP 149/74; PULSE 83; RESP 20; TEMP 98.9; O2SAT 91
[2023-08-20 22:00] VITALS: BP 153/66; PULSE 93; RESP 20; TEMP 97.3; O2SAT 94
[2023-08-21] VITALS (7 sets, daily range): BP systolic 113–133; BP diastolic 53–72; PULSE 88–100; RESP 16–20; TEMP 97.8–99.1; O2SAT 91–94
[2023-08-21] MEDS: ACCU-CHEK COMFORT CURVE STRIP VI SCH ×4 (02:08→17:27)
[2023-08-21] MEDS: InsuLIN REG 1unit/0.01ml Soln (100units/ml) SC SCH ×4 (06:40→17:29)
[2023-08-21] MEDS: CYCLOBENZAPRINE HCL 10 MG TAB PO SCH ×3 (06:44→22:36)
[2023-08-21] MEDS: GABAPENTIN 300 MG CAP PO SCH ×3 (06:44→22:36)
[2023-08-21] MEDS: HYDROcodone-ACET 10/325MG TAB PO PRN (10:35)
[2023-08-21] MEDS: DOCUSATE SOD 100 MG CAP PO SCH ×2 (10:35→22:36)
[2023-08-21] MEDS: ACETAMINOPHEN 325 MG TAB PO PRN (13:14)
[2023-08-21] MEDS: TAMSULOSIN HYDROCHLORIDE 0.4 MG CAP PO SCH (17:27)
[2023-08-22] MEDS: ACCU-CHEK COMFORT CURVE STRIP VI SCH ×5 (01:16→22:52)
[2023-08-22 05:00] VITALS: BP 101/52; PULSE 96; RESP 18; TEMP 98.1; O2SAT 92
[2023-08-22 06:06] LABS: Basophils # (auto) 0 10 ^3/uL (0-0.2); Basophils % (auto) 0.4 % (0.0-2.0); Eosinophils # (auto) 0.1 10 ^3/uL (0-0.8); Eosinophils % (auto) 0.8 % (0.0-7.0); Hematocrit 37.4 % (41.0-53.0); Hemoglobin 12.7 g/dL (13.5-17.5); Lymphocytes # (auto) 0.7 10 ^3/uL (0.4-5.4); Lymphocytes % (auto) 8.7 % (10.0-50.0); Mean Corpuscular Hemoglobin 30.6 pg (28.0-32.0); Mean Corpuscular Hgb Conc. 34.1 g/dL (32.0-36.0); Mean Corpuscular Volume 89.8 fL (80.0-100.0); Monocytes # (auto) 0.7 10 ^3/uL (0-1.3); Monocytes % (auto) 8.2 % (0.0-12.0); Neutrophils # (auto) 6.8 10 ^3/uL (1.6-8.6); Neutrophils % (auto) 81.9 % (37.0-80.0); Red Blood Cells 4.16 10^6/uL (4.5-5.90); Red Cell Distribution Width 13.7 % (11.8-14.3); White Blood Cell 8.3 10^3/uL (4.4-10.8)
[2023-08-22 06:19] LABS: Chloride 103 mmol/L (98-107); Sodium 137 mmol/L (136-145)
[2023-08-22 06:20] LABS: Anion Gap 14 (5-15); Carbon Dioxide 20 mmol/L (20-30)
[2023-08-22 06:21] LABS: Calcium 8.8 mg/dL (8.7-10.4)
[2023-08-22 06:25] LABS: Glucose 132 mg/dL (74-106)
[2023-08-22 06:26] LABS: BUN/Creatinine Ratio 17.5 (10.0-20.0); Blood Urea Nitrogen 21 mg/dL (9-23); Magnesium 2.1 mg/dL (1.6-2.6)
[2023-08-22] MEDS: InsuLIN REG 1unit/0.01ml Soln (100units/ml) SC SCH ×5 (06:54→22:57)
[2023-08-22] MEDS: GABAPENTIN 300 MG CAP PO SCH ×3 (06:55→23:00)
[2023-08-22] MEDS: CYCLOBENZAPRINE HCL 10 MG TAB PO SCH ×3 (06:55→23:00)
[2023-08-22 08:00] VITALS: PULSE 96; RESP 18; O2SAT 94
[2023-08-22 08:40] VITALS: BP 116/66; PULSE 96; RESP 17; TEMP 98.4; O2SAT 94
[2023-08-22] MEDS: DOCUSATE SOD 100 MG CAP PO SCH ×2 (09:28→23:00)
[2023-08-22 12:40] VITALS: BP 115/53; PULSE 89; RESP 16; TEMP 98.4; O2SAT 95
[2023-08-22 16:36] VITALS: BP 101/60; PULSE 88; RESP 17; TEMP 98.3; O2SAT 95
[2023-08-22] MEDS: TAMSULOSIN HYDROCHLORIDE 0.4 MG CAP PO SCH (18:19)
[2023-08-22 22:00] VITALS: BP 120/75; PULSE 88; RESP 18; TEMP 98.3; O2SAT 90
[2023-08-23 04:30] VITALS: BP 130/61; PULSE 79; RESP 18; TEMP 97.7; O2SAT 95
[2023-08-23] MEDS: InsuLIN REG 1unit/0.01ml Soln (100units/ml) SC SCH ×4 (05:51→17:26)
[2023-08-23] MEDS: CYCLOBENZAPRINE HCL 10 MG TAB PO SCH ×3 (05:58→22:12)
[2023-08-23] MEDS: GABAPENTIN 300 MG CAP PO SCH ×3 (05:58→22:12)
[2023-08-23] MEDS: ACCU-CHEK COMFORT CURVE STRIP VI SCH ×4 (06:01→23:24)
[2023-08-23 08:00] VITALS: PULSE 89; RESP 18; O2SAT 93
[2023-08-23] MEDS: DOCUSATE SOD 100 MG CAP PO SCH ×2 (08:12→22:12)
[2023-08-23 08:35] VITALS: BP 131/68; PULSE 89; RESP 18; TEMP 97.7; O2SAT 93
[2023-08-23 12:40] VITALS: BP 123/60; PULSE 84; RESP 18; TEMP 97.7; O2SAT 93
[2023-08-23 16:35] VITALS: BP 107/60; PULSE 84; RESP 18; TEMP 98.4; O2SAT 93
[2023-08-23] MEDS: TAMSULOSIN HYDROCHLORIDE 0.4 MG CAP PO SCH (17:22)
[2023-08-23 22:00] VITALS: BP 110/58; PULSE 89; RESP 16; TEMP 97.6; O2SAT 95
[2023-08-24 05:00] VITALS: BP 102/45; PULSE 76; RESP 16; TEMP 98.1; O2SAT 96
[2023-08-24] MEDS: InsuLIN REG 1unit/0.01ml Soln (100units/ml) SC SCH ×2 (06:05→10:57)
[2023-08-24] MEDS: CYCLOBENZAPRINE HCL 10 MG TAB PO SCH ×2 (06:08→14:56)
[2023-08-24] MEDS: GABAPENTIN 300 MG CAP PO SCH ×2 (06:08→14:56)
[2023-08-24] MEDS: ACCU-CHEK COMFORT CURVE STRIP VI SCH ×2 (06:11→10:57)
[2023-08-24 08:00] VITALS: PULSE 77; RESP 19
[2023-08-24 08:56] VITALS: BP 103/48; PULSE 84; RESP 18; TEMP 98.7; O2SAT 92
[2023-08-24] MEDS: DOCUSATE SOD 100 MG CAP PO SCH (10:21)
[2023-08-24] MEDS: ACETAMINOPHEN 325 MG TAB PO PRN (10:21)
[2023-08-24 12:00] VITALS: BP 94/55; PULSE 91; RESP 17; TEMP 98.6; O2SAT 97
== END 2023-08-24 15:30 | DRG 455 ==
LOC: SUR 06:17 → TELE 10:48 → TELE-WESTW 18:10 → WEST WING 08-19 12:41
PROVIDERS: ADMIT Orthopaedic Surgery; ATTEND Internal Medicine
PROC: 0SG1071 Fusion of 2 or more Lumbar Vertebral Joints with Autologous Tissue Substitute, Posterior Approach, Posterior Column, Open Approach (ICD-10-PCS; 2023-08-18)
PROC: 01NB0ZZ Release Lumbar Nerve, Open Approach (ICD-10-PCS; 2023-08-18)
PROC: 00NY0ZZ Release Lumbar Spinal Cord, Open Approach (ICD-10-PCS; 2023-08-18)
PROC: 4A11X4G Monitoring of Peripheral Nervous Electrical Activity, Intraoperative, External Approach (ICD-10-PCS; 2023-08-18)
PROC: 0SG10AJ Fusion of 2 or more Lumbar Vertebral Joints with Interbody Fusion Device, Posterior Approach, Anterior Column, Open Approach (ICD-10-PCS; principal; 2023-08-18 07:37)
DX: M48.061 Spinal stenosis, lumbar region without neurogenic claudication (principal); N40.0 Benign prostatic hyperplasia without lower urinary tract symptoms; E11.42 Type 2 diabetes mellitus with diabetic polyneuropathy; I10 Essential (primary) hypertension; E78.00 Pure hypercholesterolemia, unspecified; G89.29 Other chronic pain; M51.16 Intervertebral disc disorders with radiculopathy, lumbar region; Z85.46 Personal history of malignant neoplasm of prostate; Z92.3 Personal history of irradiation; Z75.1 Person awaiting admission to adequate facility elsewhere
CPT/HCPCS: 36415; 72100; 76000; 80048; 80053; 81001; 82962; 83036; 83735; 85025; 85610; 85730; 86850; 86900; 86901; 97110; 97116; 97163; 97530; G0378; J0131; J0690; J1100; J1815; J2001; J2405; J2704

== ENCOUNTER 2024-01-29 08:52 | Day surgery (SDC) | payer MEDICARE, OTHER ==
[2024-01-27 11:18] LABS: Basophils # (auto) 0 10 ^3/uL (0-0.2); Basophils % (auto) 0.7 % (0.0-2.0); Eosinophils # (auto) 0.5 10 ^3/uL (0-0.8); Eosinophils % (auto) 7.8 % (0.0-7.0); Hematocrit 39.7 % (41.0-53.0); Hemoglobin 13.5 g/dL (13.5-17.5); Lymphocytes # (auto) 1.4 10 ^3/uL (0.4-5.4); Lymphocytes % (auto) 21.2 % (10.0-50.0); Mean Corpuscular Hemoglobin 29.6 pg (28.0-32.0); Mean Corpuscular Hgb Conc. 34.1 g/dL (32.0-36.0); Mean Corpuscular Volume 86.7 fL (80.0-100.0); Monocytes # (auto) 0.5 10 ^3/uL (0-1.3); Monocytes % (auto) 8.2 % (0.0-12.0); Neutrophils # (auto) 4.1 10 ^3/uL (1.6-8.6); Neutrophils % (auto) 62.1 % (37.0-80.0); Red Blood Cells 4.58 10^6/uL (4.5-5.90); Red Cell Distribution Width 14.7 % (11.8-14.3); White Blood Cell 6.5 10^3/uL (4.4-10.8)
[2024-01-27 11:51] LABS: Alanine Aminotransferase 21 U/L (7-40); Alkaline Phosphatase 81 U/L (46-116); Anion Gap 5 (5-15); BUN/Creatinine Ratio 12.1 (10.0-20.0); Blood Urea Nitrogen 15 mg/dL (9-23); Calcium 9.8 mg/dL (8.5-10.1); Carbon Dioxide 29 mmol/L (20-30); Chloride 104 mmol/L (98-107); Glucose 113 mg/dL (74-106); INR 1.03 (0.9-1.15); Partial Thromboplastin Time 27.1 SEC (24.5-34.5); Potassium 4.6 mmol/L (3.5-5.1); Prothrombin Time 10.8 sec (9.3-11.8); Sodium 138 mmol/L (136-145)
[2024-01-27 11:52] LABS: Albumin 4.5 g/dL (3.2-4.8); Aspartate Aminotransferase 22 U/L (13-40); Bilirubin, Total 0.7 mg/dL (0.2-1.0); Total Protein 7.1 g/dL (5.7-8.2)
[~2024-01-29] VITALS: Ht 180.3 cm; Wt 91.6 kg
[~2024-01-29 08:52] MED LIST changes: +CHOL20007 PO; +LISI2.5T47 PO; +TRAM50TA2 PO
[2024-01-29] MEDS ORDERED: SODIUM CHLORIDE LOCK 10 ML ONE (09:10)
[2024-01-29 09:36] VITALS: PULSE 63; RESP 18; O2SAT 97
[2024-01-29] MEDS: fentaNYL CITRATE 100 MCG/2 ML VL ONE (09:40)
[2024-01-29] MEDS: MIDAZOLAM HCL 5 MG/ML-1ML VIAL ONE (09:40)
[2024-01-29] MEDS: diphenhdrAMINE HCL 50 MG/1 ML VL ONE (09:41)
[2024-01-29 10:06] VITALS: RESP 15; TEMP 98.5; O2SAT 98
[2024-01-29 10:50] VITALS: BP 125/64; PULSE 62; RESP 16; O2SAT 93
== END 2024-01-29 11:06 | disposition home or self-care (01) ==
LOC: GI 08:52
PROVIDERS: ATTEND Internal Medicine Gastroenterology
DX: Z12.11 Encounter for screening for malignant neoplasm of colon (principal); D12.4 Benign neoplasm of descending colon; D12.3 Benign neoplasm of transverse colon; K57.30 Diverticulosis of large intestine without perforation or abscess without bleeding; K64.8 Other hemorrhoids; I10 Essential (primary) hypertension; E11.40 Type 2 diabetes mellitus with diabetic neuropathy, unspecified; E78.5 Hyperlipidemia, unspecified; Z87.891 Personal history of nicotine dependence; Z86.010 Personal history of colon polyps; Z98.890 Other specified postprocedural states; Z83.3 Family history of diabetes mellitus; Z85.46 Personal history of malignant neoplasm of prostate; Z98.41 Cataract extraction status, right eye; Z98.42 Cataract extraction status, left eye; Z79.82 Long term (current) use of aspirin; Z79.899 Other long term (current) drug therapy; Z79.01 Long term (current) use of anticoagulants
CPT/HCPCS: 36415; 45380; 45385; 80053; 82962; 85025; 85610; 85730; 88305; J1200; J2250; J3010; 99152

== ENCOUNTER 2024-02-07 12:25 | Inpatient (IN) | payer MEDICARE, OTHER ==
[~2024-02-07] VITALS: Ht 180.3 cm; Wt 88.7 kg
[2024-02-07 12:58] LABS: Basophils # (auto) 0 10 ^3/uL (0-0.2); Basophils % (auto) 0.7 % (0.0-2.0); Eosinophils # (auto) 0.3 10 ^3/uL (0-0.8); Eosinophils % (auto) 5.2 % (0.0-7.0); Hematocrit 36.9 % (41.0-53.0); Hemoglobin 12.6 g/dL (13.5-17.5); Lymphocytes # (auto) 1.2 10 ^3/uL (0.4-5.4); Lymphocytes % (auto) 20.3 % (10.0-50.0); Mean Corpuscular Hemoglobin 29.7 pg (28.0-32.0); Mean Corpuscular Hgb Conc. 34.1 g/dL (32.0-36.0); Monocytes # (auto) 0.4 10 ^3/uL (0-1.3); Neutrophils # (auto) 4.2 10 ^3/uL (1.6-8.6); Neutrophils % (auto) 67.8 % (37.0-80.0); Red Blood Cells 4.24 10^6/uL (4.5-5.90); Red Cell Distribution Width 14.6 % (11.8-14.3); White Blood Cell 6.1 10^3/uL (4.4-10.8)
[2024-02-07 13:16] LABS: Alanine Aminotransferase 21 U/L (7-40); Albumin 4.2 g/dL (3.2-4.8); Alkaline Phosphatase 79 U/L (46-116); Anion Gap 8 (5-15); Aspartate Aminotransferase 14 U/L (13-40); BUN/Creatinine Ratio 13.9 (10.0-20.0); Blood Urea Nitrogen 21 mg/dL (9-23); Calcium 9.6 mg/dL (8.7-10.4); Carbon Dioxide 25 mmol/L (20-30); Chloride 104 mmol/L (98-107); Glucose 256 mg/dL (74-106); Potassium 4.4 mmol/L (3.5-5.1); Sodium 137 mmol/L (136-145)
[2024-02-07 13:17] LABS: Bilirubin, Total 0.5 mg/dL (0.2-1.0); Total Protein 6.6 g/dL (5.7-8.2)
[2024-02-07] MEDS ORDERED: DEXTROSE (50%) 50ML SYRG IV PRN (15:15)
[2024-02-07 22:55] VITALS: BP 130/53; PULSE 57; RESP 16; TEMP 97.5; O2SAT 99
[2024-02-08] VITALS (7 sets, daily range): BP systolic 99–138; BP diastolic 47–87; PULSE 57–100; RESP 14–19; TEMP 97.5–98.6; O2SAT 95–100
[2024-02-08] MEDS: SODIUM CHLORIDE 0.9% 1,000 ML IV SCH (04:28)
[2024-02-08] MEDS: ACCU-CHEK COMFORT CURVE STRIP VI SCH (06:34)
[2024-02-08] MEDS: InsuLIN REG 1unit/0.01ml Soln (100units/ml) SC SCH (06:37)
[2024-02-08] MEDS: GABAPENTIN 300 MG CAP PO SCH (06:40)
[2024-02-08 06:42] LABS: Basophils # (auto) 0.1 10 ^3/uL (0-0.2); Basophils % (auto) 0.8 % (0.0-2.0); Eosinophils # (auto) 0.4 10 ^3/uL (0-0.8); Eosinophils % (auto) 5.2 % (0.0-7.0); Hematocrit 36.6 % (41.0-53.0); Hemoglobin 12.4 g/dL (13.5-17.5); Lymphocytes # (auto) 1.4 10 ^3/uL (0.4-5.4); Lymphocytes % (auto) 20.1 % (10.0-50.0); Mean Corpuscular Hemoglobin 29.2 pg (28.0-32.0); Mean Corpuscular Hgb Conc. 33.8 g/dL (32.0-36.0); Mean Corpuscular Volume 86.4 fL (80.0-100.0); Monocytes # (auto) 0.5 10 ^3/uL (0-1.3); Monocytes % (auto) 7.4 % (0.0-12.0); Neutrophils # (auto) 4.6 10 ^3/uL (1.6-8.6); Neutrophils % (auto) 66.5 % (37.0-80.0); Nucleated Red Blood Cells % 0.1 %; Red Blood Cells 4.23 10^6/uL (4.5-5.90); Red Cell Distribution Width 14.5 % (11.8-14.3)
[2024-02-08 06:57] LABS: Alanine Aminotransferase 20 U/L (7-40); Albumin 3.9 g/dL (3.2-4.8); Alkaline Phosphatase 72 U/L (46-116); Anion Gap 7 (5-15); Aspartate Aminotransferase 19 U/L (13-40); BUN/Creatinine Ratio 13.9 (10.0-20.0); Bilirubin, Total 0.6 mg/dL (0.2-1.0); Blood Urea Nitrogen 16 mg/dL (9-23); Calcium 9.2 mg/dL (8.7-10.4); Carbon Dioxide 25 mmol/L (20-30); Chloride 106 mmol/L (98-107); Glucose 100 mg/dL (74-106); Potassium 3.9 mmol/L (3.5-5.1); Sodium 138 mmol/L (136-145); Total Protein 6.3 g/dL (5.7-8.2)
[2024-02-08 09:01] LABS: Hepatitis B Surface Antigen Negative (Negative)
[2024-02-08 09:22] LABS: Hepatitis C Antibody Negative (Negative)
[2024-02-08] MEDS ORDERED: METOPROLOL SUCCINATE XL 50 MG TAB PO SCH (10:00)
[2024-02-08] MEDS: TAMSULOSIN HYDROCHLORIDE 0.4 MG CAP PO SCH (10:09)
[2024-02-08] MEDS: ASPirin 81 mg TAB PO SCH (10:09)
[2024-02-08] MEDS: PANTOPRAZOLE 40 MG TAB PO SCH (10:10)
[2024-02-08] MEDS: ENOXAPARIN SOD 40 MG/0.4 ML SYRINGE SC SCH (10:11)
[2024-02-08] MEDS: amLODIPine BESYLATE 5 MG TAB PO SCH (10:11)
[2024-02-08 12:49] LABS: Triglycerides 161 mg/dL (< 150)
[2024-02-08 12:50] LABS: LDL Cholesterol 87 mg/dL (< 100)
[2024-02-08 12:51] LABS: Cholesterol 150 mg/dL (< 200); HDL Cholesterol 29 mg/dL (40-59)
[2024-02-08] MEDS: ATORVASTATIN 20 MG TAB PO SCH (21:53)
[2024-02-09 01:00] VITALS: BP 103/55; PULSE 66; RESP 20; TEMP 98.1; O2SAT 93
[2024-02-09 05:00] VITALS: BP 123/55; PULSE 64; RESP 18; TEMP 97.8; O2SAT 92
[2024-02-09 08:00] VITALS: PULSE 58; RESP 18; O2SAT 96
[2024-02-09 08:17] LABS: Basophils # (auto) 0 10 ^3/uL (0-0.2); Basophils % (auto) 0.7 % (0.0-2.0); Eosinophils # (auto) 0.3 10 ^3/uL (0-0.8); Eosinophils % (auto) 5.5 % (0.0-7.0); Hematocrit 34.7 % (41.0-53.0); Hemoglobin 11.7 g/dL (13.5-17.5); Lymphocytes # (auto) 1.2 10 ^3/uL (0.4-5.4); Lymphocytes % (auto) 20.4 % (10.0-50.0); Mean Corpuscular Hemoglobin 29.3 pg (28.0-32.0); Mean Corpuscular Hgb Conc. 33.7 g/dL (32.0-36.0); Mean Corpuscular Volume 87.1 fL (80.0-100.0); Monocytes # (auto) 0.5 10 ^3/uL (0-1.3); Monocytes % (auto) 8.9 % (0.0-12.0); Neutrophils # (auto) 3.7 10 ^3/uL (1.6-8.6); Neutrophils % (auto) 64.5 % (37.0-80.0); Nucleated Red Blood Cells % 0.1 %; Red Blood Cells 3.99 10^6/uL (4.5-5.90); Red Cell Distribution Width 14.2 % (11.8-14.3); White Blood Cell 5.7 10^3/uL (4.4-10.8)
[2024-02-09 08:46] LABS: Alanine Aminotransferase 13 U/L (7-40); Albumin 3.6 g/dL (3.2-4.8); Alkaline Phosphatase 68 U/L (46-116); Anion Gap 6 (5-15); Aspartate Aminotransferase 17 U/L (13-40); BUN/Creatinine Ratio 12.5 (10.0-20.0); Bilirubin, Total 0.7 mg/dL (0.2-1.0); Blood Urea Nitrogen 15 mg/dL (9-23); Calcium 8.9 mg/dL (8.5-10.1); Carbon Dioxide 25 mmol/L (20-30); Chloride 108 mmol/L (98-107); Glucose 108 mg/dL (74-106); Potassium 3.8 mmol/L (3.5-5.1); Sodium 139 mmol/L (136-145); Total Protein 5.9 g/dL (5.7-8.2)
[2024-02-09 09:00] VITALS: BP 130/64; PULSE 65; RESP 17; TEMP 98.1; O2SAT 92
[2024-02-09] MEDS: CLOPIDOGREL BISULFATE 75 MG TAB PO SCH (10:11)
[2024-02-09] MEDS: LISINOPRIL 5 MG TAB PO SCH (10:13)
[2024-02-09] MEDS ORDERED: ATOR40TA52 PO (10:24)
[2024-02-09] MEDS ORDERED: ASPI-325 PO (10:24)
[2024-02-09] MEDS ORDERED: CLOP75TA70 PO (10:24)
[2024-02-09 12:58] VITALS: BP 126/64; PULSE 72; RESP 18; TEMP 98.2; O2SAT 95
[2024-02-09 13:00] VITALS: BP 111/60; PULSE 60; RESP 21; TEMP 97.6; O2SAT 96
== END 2024-02-09 15:50 | disposition home or self-care (01) | DRG 67 ==
LOC: ER 12:25 → TELE 15:19 → TELE-CENTR 22:55
PROVIDERS: ADMIT Internal Medicine; ATTEND Internal Medicine
DX: I65.23 Occlusion and stenosis of bilateral carotid arteries (principal); N17.0 Acute kidney failure with tubular necrosis; I12.9 Hypertensive chronic kidney disease with stage 1 through stage 4 chronic kidney disease, or unspecified chronic kidney disease; E11.22 Type 2 diabetes mellitus with diabetic chronic kidney disease; N18.32 Chronic kidney disease, stage 3b; E78.5 Hyperlipidemia, unspecified; G25.81 Restless legs syndrome; E11.65 Type 2 diabetes mellitus with hyperglycemia; N40.0 Benign prostatic hyperplasia without lower urinary tract symptoms; E11.42 Type 2 diabetes mellitus with diabetic polyneuropathy; R00.1 Bradycardia, unspecified; F17.200 Nicotine dependence, unspecified, uncomplicated; Z85.46 Personal history of malignant neoplasm of prostate; Z79.899 Other long term (current) drug therapy; Z83.3 Family history of diabetes mellitus; Z82.49 Family history of ischemic heart disease and other diseases of the circulatory system; Z79.4 Long term (current) use of insulin
CPT/HCPCS: 36415; 70450; 70551; 71045; 80053; 80061; 82962; 83036; 83880; 84484; 85025; 86803; 87340; 93005; 93306; 93886; G0378; J1815

== ENCOUNTER → 2024-07-26 | Outpatient (CLI) | payer MEDICARE, OTHER ==
[~2024-07-26] MED LIST changes: +ASPI-325 PO; +ATOR40TA52 PO; -BICA50TA13 PO; +BICA50TA42 PO; +CLOP75TA70 PO; -METO-289 PO; -TAMS0.4C36 PO; +TAMS0.4C39 PO
== END | disposition home or self-care (01) ==
LOC: LAB 15:44
PROVIDERS: ATTEND Internal Medicine Medical Oncology
DX: Z00.00 Encounter for general adult medical examination without abnormal findings (principal); Z79.899 Other long term (current) drug therapy
CPT/HCPCS: 36415; 84153; 84403

== ENCOUNTER → 2024-11-15 | Outpatient (CLI) | payer MEDICARE, OTHER | END | disposition home or self-care (01) | LOC: LAB 11:50 | PROVIDERS: ATTEND Urology | DX: C61 Malignant neoplasm of prostate (principal) | CPT/HCPCS: 84153 ==

== ENCOUNTER → 2024-12-13 | Outpatient (CLI) | payer MEDICARE, OTHER ==
[2024-12-13 09:32] LABS: Urine Bacteria None Seen /hpf (None Seen)
[2024-12-13 09:39] LABS: Basophils # (auto) 0 10 ^3/uL (0-0.2); Basophils % (auto) 0.9 % (0.0-2.0); Eosinophils # (auto) 0.2 10 ^3/uL (0-0.8); Eosinophils % (auto) 4.5 % (0.0-7.0); Hematocrit 40.4 % (41.0-53.0); Hemoglobin 13.5 g/dL (13.5-17.5); Lymphocytes # (auto) 1.2 10 ^3/uL (0.4-5.4); Lymphocytes % (auto) 22.7 % (10.0-50.0); Mean Corpuscular Hemoglobin 30.1 pg (28.0-32.0); Mean Corpuscular Hgb Conc. 33.3 g/dL (32.0-36.0); Mean Corpuscular Volume 90.4 fL (80.0-100.0); Monocytes # (auto) 0.5 10 ^3/uL (0-1.3); Monocytes % (auto) 9.2 % (0.0-12.0); Neutrophils # (auto) 3.4 10 ^3/uL (1.6-8.6); Neutrophils % (auto) 62.7 % (37.0-80.0); Platelet Count (auto) 172 10^3/uL (140-450); Red Blood Cells 4.47 10^6/uL (4.5-5.90); Red Cell Distribution Width 13.2 % (11.8-14.3); White Blood Cell 5.3 10^3/uL (4.4-10.8)
[2024-12-13 10:19] LABS: Creatinine, Urine 85.3 mg/dL (30.0-125.0)
[2024-12-13 10:24] LABS: Alanine Aminotransferase 30 U/L (7-40); Albumin 4.6 g/dL (3.2-4.8); Anion Gap 9 (5-15); Aspartate Aminotransferase 18 U/L (13-40); BUN/Creatinine Ratio 11.2 (10.0-20.0); Bilirubin, Total 0.5 mg/dL (0.2-1.0); Blood Urea Nitrogen 15 mg/dL (9-23); Calcium 9.8 mg/dL (8.7-10.4); Carbon Dioxide 25 mmol/L (20-31); Cholesterol 150 mg/dL (< 200); LDL Cholesterol 83 mg/dL (< 100); Potassium 4.2 mmol/L (3.5-5.1); Sodium 141 mmol/L (136-145); Total Protein 6.8 g/dL (5.7-8.2)
[2024-12-13 10:38] LABS: Chloride 107 mmol/L (98-107); Glucose 139 mg/dL (74-106); HDL Cholesterol 28 mg/dL (40-59); Triglycerides 153 mg/dL (< 150)
[2024-12-13 10:44] LABS: Erythrocyte Sedimentation Rate 13 mm/hr (0-20)
[2024-12-13 10:48] LABS: Free T4 (Free Thyroxine) 1.07 ng/dL (0.89-1.76)
[2024-12-13 11:13] LABS: Alkaline Phosphatase 89 U/L (46-116)
[2024-12-13 11:31] LABS: Uric Acid 4.7 mg/dL (3.7-9.2)
[2024-12-13 12:30] LABS: Urine Blood Negative /uL (Negative); Urine Clarity Clear (Clear); Urine Color Light-Yellow (Yellow); Urine Mucus FEW (None Seen); Urine Protein, UAD Negative (Negative); Urine Specific Gravity 1.028 (1.001-1.035); Urine Squamous Epithelial Cell FEW /hpf (<5); Urine Urobilinogen Normal (Negative); Urine WBC 1 /HPF (0-3)
== END | disposition home or self-care (01) ==
LOC: LAB 09:13
PROVIDERS: ATTEND Internal Medicine
DX: E11.22 Type 2 diabetes mellitus with diabetic chronic kidney disease (principal); N18.30 Chronic kidney disease, stage 3 unspecified
CPT/HCPCS: 36415; 80053; 80061; 81001; 82043; 82570; 82607; 83036; 83970; 84439; 84443; 84550; 85025; 85652